=== PATIENT | male | born 1980 | race Caucasian/White ===

== ENCOUNTER 2017-04-22 17:50 | Emergency (ER) | payer BC ==
[~2017-04-22] VITALS: Ht 182.9 cm; Wt 92.6 kg
[~2017-04-22 17:50] MED LIST: ORPH100T PO; PRIL20TA2 PO; TRAM50TA PO
[2017-04-22 18:14] VITALS: BP 162/96; PULSE 71; RESP 16; TEMP 98.4; O2SAT 100
[2017-04-22] MEDS ORDERED: SODIUM CHLORIDE 0.9% FLUSH 10 ML FLUSH IV FLUSH PRN (18:30)
[2017-04-22] MEDS ORDERED: ONDANSETRON HCL 4 MG/2 ML VIAL IVP ONE (18:30)
[2017-04-22] MEDS ORDERED: SODIUM CHLOR 0.9% 1000 ML INJ 1,000 ML IV SCH (18:30)
[2017-04-22] MEDS ORDERED: MORPHINE SULFATE 4 MG/ML INJ IV PUSH ONE (18:30)
[2017-04-22] MEDS ORDERED: NEXI20CA PO (18:31)
--- NOTE | 2017-04-22 18:35 | PD ---
HPI Chief Complaint: Abdominal Pain Time Seen by Provider: 18:29 Travel History International Travel<30 days: No Contact w/Intl Traveler<30days: No Traveled to known affect area: No History of Present Illness HPI 37-year-old male patient with history of gastroparesis, presents to the ER today for several days history of nausea, increased fatigue, and started having right lower quadrant abdominal pains today, currently a 6 out of 10. He denies any diarrhea, fevers, or other symptoms. She states that there have been sick contacts at work. Modifying Factors: None Associated Signs & Symptoms: Nausea, right lower quadrant abdominal pain, not feeling well Risk Factors: Possible sick contacts PFSH Past Medical History Cancer: No Diabetes: No Diminished Hearing: No Gastrointestinal Disorders: Yes (GASTROPARESIS) GERD: Yes Hepatitis: No Hiatal Hernia: No Medical other: Yes (ACID REFLUX) Thyroid Disease: No Influenza Vaccination: No Past Surgical History Oral Surgery: Yes (HAND AND KNEE) Other Surgery: Yes Social History Alcohol Use: Yes (SOCIALLY ) Tobacco Use: No Substance Use: No Allergies-Medications (Allergen,Severity, Reaction): Coded Allergies: Pertussis Vaccines (Unverified Allergy, Severe, COMATOSE FOR 4 DAYS, 04/22) PT BECAME COMATOSE Reported Meds & Prescriptions Reported Meds & Active Scripts Active Reported Nexium (Esomeprazole DR) 20 Mg Capdr 20 Mg PO DAILY Review of Systems Except as stated in HPI: all other systems reviewed are Neg Physical Exam Narrative GENERAL: Well-developed young male patient currently in mild distress. Awake and oriented 3. SKIN: Focused skin assessment warm/dry. HEAD: Atraumatic. Normocephalic. EYES: Pupils equal and round. No scleral icterus. No injection or drainage. ENT: No nasal bleeding or discharge. Mucous membranes pink and moist. NECK: Trachea midline. No JVD. CARDIOVASCULAR: Regular rate and rhythm. No murmur appreciated. RESPIRATORY: No accessory muscle use. Clear to auscultation. Breath sounds equal bilaterally. GASTROINTESTINAL: Abdomen soft, mild right lower quadrant tenderness without guarding or rebound, nondistended. Hepatic and splenic margins not palpable. MUSCULOSKELETAL: No obvious deformities. No clubbing. No cyanosis. No edema. NEUROLOGICAL: Awake and alert. No obvious cranial nerve deficits. Motor grossly within normal limits. Normal speech. PSYCHIATRIC: Appropriate mood and affect; insight and judgment normal. Data Data Last Documented VS Vital Signs Date Time Temp Pulse Resp B/P (MAP) Pulse Ox O2 Delivery O2 Flow Rate FiO2 04/22/17 18:50 85 18 144/83 (103) 98 Room Air 04/22/17 18:14 98.4 Orders Orders Complete Blood Count With Diff (04/22/17 18:30) Comprehensive Metabolic Panel (04/22/17 18:30) Lipase (04/22/17 18:30) Urinalysis - C+S If Indicated (04/22/17 18:30) Ct Abd/Pel W Iv Contrast(Rout) (04/22/17 18:30) Iv Access Insert/Monitor (04/22/17 18:30) Ecg Monitoring (04/22/17 18:30) Oximetry (04/22/17 18:30) Morphine Inj (Morphine Inj) (04/22/17 18:30) Ondansetron Inj (Zofran Inj) (04/22/17 18:30) Sodium Chlor 0.9% 1000 Ml Inj (Ns 1000 M (04/22/17 18:30) Sodium Chloride 0.9% Flush (Ns Flush) (04/22/17 18:30) Influenzae A/B Antigen (04/22/17 18:30) Labs Laboratory Tests Test 04/22/17 18:35 White Blood Count 9.5 TH/MM3 Red Blood Count 5.20 MIL/MM3 Hemoglobin 14.4 GM/DL Hematocrit 44.1 % Mean Corpuscular Volume 84.9 FL Mean Corpuscular Hemoglobin 27.7 PG Mean Corpuscular Hemoglobin Concent 32.7 % Red Cell Distribution Width 14.1 % Platelet Count 261 TH/MM3 Mean Platelet Volume 8.2 FL Neutrophils (%) (Auto) 78.1 % Lymphocytes (%) (Auto) 14.9 % Monocytes (%) (Auto) 5.2 % Eosinophils (%) (Auto) 1.0 % Basophils (%) (Auto) 0.8 % Neutrophils # (Auto) 7.4 TH/MM3 Lymphocytes # (Auto) 1.4 TH/MM3 Monocytes # (Auto) 0.5 TH/MM3 Eosinophils # (Auto) 0.1 TH/MM3 Basophils # (Auto) 0.1 TH/MM3 CBC Comment DIFF FINAL Differential Comment Blood Urea Nitrogen 18 MG/DL Creatinine 1.10 MG/DL Random Glucose 88 MG/DL Total Protein 8.1 GM/DL Albumin 4.2 GM/DL Calcium Level 9.2 MG/DL Alkaline Phosphatase 65 U/L Aspartate Amino Transf (AST/SGOT) 17 U/L Alanine Aminotransferase (ALT/SGPT) 25 U/L Total Bilirubin 0.5 MG/DL Sodium Level 138 MEQ/L Potassium Level 3.9 MEQ/L Chloride Level 104 MEQ/L Carbon Dioxide Level 25.1 MEQ/L Anion Gap 9 MEQ/L Estimat Glomerular Filtration Rate 75 ML/MIN Lipase 83 U/L [facility] Medical Decision Making Medical Screen Exam Complete: Yes Emergency Medical Condition: Yes Medical Record Reviewed: Yes Interpretation(s) Laboratory Tests Test 04/22/17 18:35 Neutrophils (%) (Auto) 78.1 % (16.0-70.0) Estimat Glomerular Filtration Rate 75 ML/MIN (>89) Differential Diagnosis Right lower quadrant abdominal pain with nausea: Gastroparesis versus gastroenteritis versus appendicitis versus renal colic versus UTI Narrative Course Patient was given pain medications, IV fluids, nausea medications in the ER. Initial lab work is fairly unremarkable. CAT scan has been ordered for the patient for further evaluation especially with the right lower quadrant abdominal pain. Physician Communication Physician Communication Case is signed out to Dr. James at 7 PM pending CAT scan evaluation. Disposition based CAT scan. Diagnosis Primary Impression: Abdominal pain Condition: Stable Khurram Roach MD Apr 22, 2017 18:35
[2017-04-22 18:46] LABS: AUTOMATED NEUTROPHIL # 7.4 TH/MM3 (1.8-7.7); BASOPHIL # 0.1 TH/MM3 (0-0.2); BASOPHIL % 0.8 % (0.0-2.0); EOSINOPHIL # 0.1 TH/MM3 (0-0.4); HEMATOCRIT 44.1 % (39.0-51.0); HEMOGLOBIN 14.4 GM/DL (13.0-17.0); LYMPH % 14.9 % (9.0-44.0); LYMPHOCYTE # 1.4 TH/MM3 (1.0-4.8); MEAN CELL VOLUME 84.9 FL (80.0-100.0); MEAN CORPUSCULAR HEMOGLOBIN 27.7 PG (27.0-34.0); MEAN CORPUSCULAR HGB CONC 32.7 % (32.0-36.0); MEAN PLATELET VOLUME 8.2 FL (7.0-11.0); MONO % 5.2 % (0.0-8.0); MONOCYTE # 0.5 TH/MM3 (0-0.9); NEUT % 78.1 % (16.0-70.0); PLATELET COUNT 261 TH/MM3 (150-450); RED CELL DISTRIBUTION WIDTH 14.1 % (11.6-17.2); WHITE BLOOD COUNT 9.5 TH/MM3 (4.0-11.0)
[2017-04-22 18:50] VITALS: BP 144/83; PULSE 85; RESP 18; O2SAT 98
[2017-04-22 18:53] LABS: CHLORIDE 104 MEQ/L (98-107); SODIUM (NA) 138 MEQ/L (136-145)
[2017-04-22 18:57] LABS: ALBUMIN 4.2 GM/DL (3.4-5.0); BICARBONATE 25.1 MEQ/L (21.0-32.0); BLOOD UREA NITROGEN 18 MG/DL (7-18); CALCIUM 9.2 MG/DL (8.5-10.1); GLUCOSE,RANDOM 88 MG/DL (74-106)
[2017-04-22 18:58] LABS: LIPASE 83 U/L (73-393)
[2017-04-22 19:00] LABS: ALT (GPT) 25 U/L (12-78); AST (GOT) 17 U/L (15-37); GLOMERULAR FILTRATION RATE 75 ML/MIN (>89)
[2017-04-22 19:02] LABS: TOTAL BILIRUBIN ADULT 0.5 MG/DL (0.2-1.0); TOTAL PROTEIN 8.1 GM/DL (6.4-8.2)
[2017-04-22 19:03] LABS: ALKALINE PHOSPHATASE 65 U/L (45-117)
[2017-04-22] MEDS ORDERED: IOHEXOL 350 MG/ML 10 ML VIAL (for RAD DIAG) IVCONTRAST ONE (19:34)
[2017-04-22 19:50] VITALS: BP 144/75; PULSE 85; RESP 16; O2SAT 98
--- NOTE | 2017-04-22 20:10 | RADRPT ---
EXAM DATE/TIME: 04/22/2017 19:29 [facility] COMPARISON: CT ABDOMEN & PELVIS W CONTRAST, April 06, 2015, 21:44. INDICATIONS : Right lower quadrant pain. IV CONTRAST: 100 cc Omnipaque 350 (iohexol) IV ORAL CONTRAST: No oral contrast ingested. RADIATION DOSE: 11.78 CTDIvol (mGy) MEDICAL HISTORY : Gastroparesis. Gastroesophageal reflux disease. SURGICAL HISTORY : None. ENCOUNTER: Initial ACUITY: 1 day PAIN SCALE: 6/10 LOCATION: Right lower quadrant TECHNIQUE: Volumetric scanning of the abdomen and pelvis was performed. Using automated exposure control and ad justment of the mA and/or kV according to patient size, radiation dose was kept as low as reasonably achievable to obtain optimal diagnostic quality images. DICOM format image data is available electro nically for review and comparison. FINDINGS: LOWER LUNGS: The visualized lower lungs are clear. LIVER: Homogeneous density without lesion. There is no dilation of the biliary tree. No calcified gallston es. SPLEEN: Calcified granulomas are seen. PANCREAS: Within normal limits. KIDNEYS: Normal in size and shape. There is no mass, stone or hydronephrosis. ADRENAL GLANDS: Within normal limits. VASCULAR: There is no aortic aneurysm. BOWEL/MESENTERY: There is fluid seen throughout the ascending colon. The terminal ileum appears normal. What appears t o be the appendix appears normal. There is minimal free fluid in the pelvis. ABDOMINAL WALL: Within normal limits. RETROPERITONEUM: There is no lymphadenopathy. BLADDER: No wall thickening or mass. REPRODUCTIVE: Within normal limits. INGUINAL: There is no lymphadenopathy or hernia. MUSCULOSKELETAL: Within normal limits for patient age. CONCLUSION: Fluid in the ascending colon. There is no sign of obstruction or significant inflammatory change. The re is minimal free fluid in the peritoneal cavity in the pelvis. Rich Mcmanus MD on April 22, 2017 at 20:04 Board Certified Radiologist. This report was verified electronically.
[2017-04-22 20:14] LABS: BILIRUBIN, URINE NEG (NEG); BLOOD, URINE NEG (NEG); GLUCOSE,URINE NEG (NEG); KETONE, URINE 15 mg/dL (NEG); NITRITE,URINE NEG (NEG); URINE LEUKOCYTE ESTERASE NEG (NEG)
--- NOTE | 2017-04-22 20:30 | PD ---
Physical Exam Narrative GENERAL: SKIN: Warm and dry. HEAD: Atraumatic. Normocephalic. EYES: Pupils equal and round. No scleral icterus. No injection or drainage. ENT: No nasal bleeding or discharge. Mucous membranes pink and moist. NECK: Trachea midline. No JVD. CARDIOVASCULAR: Regular rate and rhythm. RESPIRATORY: No accessory muscle use. Clear to auscultation. Breath sounds equal bilaterally. GASTROINTESTINAL: Abdomen soft, mild right quadrant ttpercussion, without distention/guarding/rigidity/rebound MUSCULOSKELETAL: Extremities without clubbing, cyanosis, or edema. No obvious deformities. NEUROLOGICAL: Awake and alert. No obvious cranial nerve deficits. Motor grossly within normal limits. Five out of 5 muscle strength in the arms and legs. Normal speech. PSYCHIATRIC: Appropriate mood and affect; insight and judgment normal. Data Data Last Documented VS Vital Signs Date Time Temp Pulse Resp B/P (MAP) Pulse Ox O2 Delivery O2 Flow Rate FiO2 04/22/17 19:50 85 16 144/75 (98) 98 Room Air 04/22/17 18:14 98.4 Orders Orders Complete Blood Count With Diff (04/22/17 18:30) Comprehensive Metabolic Panel (04/22/17 18:30) Lipase (04/22/17 18:30) Urinalysis - C+S If Indicated (04/22/17 18:30) Ct Abd/Pel W Iv Contrast(Rout) (04/22/17 18:30) Iv Access Insert/Monitor (04/22/17 18:30) Ecg Monitoring (04/22/17 18:30) Oximetry (04/22/17 18:30) Morphine Inj (Morphine Inj) (04/22/17 18:30) Ondansetron Inj (Zofran Inj) (04/22/17 18:30) Sodium Chlor 0.9% 1000 Ml Inj (Ns 1000 M (04/22/17 18:30) Sodium Chloride 0.9% Flush (Ns Flush) (04/22/17 18:30) Influenzae A/B Antigen (04/22/17 18:30) Iohexol 350 Inj (Omnipaque 350 Inj) (04/22/17 19:34) Labs Laboratory Tests Test 04/22/17 18:35 04/22/17 20:10 White Blood Count 9.5 TH/MM3 Red Blood Count 5.20 MIL/MM3 Hemoglobin 14.4 GM/DL Hematocrit 44.1 % Mean Corpuscular Volume 84.9 FL Mean Corpuscular Hemoglobin 27.7 PG Mean Corpuscular Hemoglobin Concent 32.7 % Red Cell Distribution Width 14.1 % Platelet Count 261 TH/MM3 Mean Platelet Volume 8.2 FL Neutrophils (%) (Auto) 78.1 % Lymphocytes (%) (Auto) 14.9 % Monocytes (%) (Auto) 5.2 % Eosinophils (%) (Auto) 1.0 % Basophils (%) (Auto) 0.8 % Neutrophils # (Auto) 7.4 TH/MM3 Lymphocytes # (Auto) 1.4 TH/MM3 Monocytes # (Auto) 0.5 TH/MM3 Eosinophils # (Auto) 0.1 TH/MM3 Basophils # (Auto) 0.1 TH/MM3 CBC Comment DIFF FINAL Differential Comment Blood Urea Nitrogen 18 MG/DL Creatinine 1.10 MG/DL Random Glucose 88 MG/DL Total Protein 8.1 GM/DL Albumin 4.2 GM/DL Calcium Level 9.2 MG/DL Alkaline Phosphatase 65 U/L Aspartate Amino Transf (AST/SGOT) 17 U/L Alanine Aminotransferase (ALT/SGPT) 25 U/L Total Bilirubin 0.5 MG/DL Sodium Level 138 MEQ/L Potassium Level 3.9 MEQ/L Chloride Level 104 MEQ/L Carbon Dioxide Level 25.1 MEQ/L Anion Gap 9 MEQ/L Estimat Glomerular Filtration Rate 75 ML/MIN Lipase 83 U/L Urine Color YELLOW Urine Turbidity CLEAR Urine pH 6.0 Urine Specific [place] 1.033 Urine Protein NEG mg/dL Urine Glucose (UA) NEG mg/dL Urine Ketones 15 mg/dL Urine Occult Blood NEG Urine Nitrite NEG Urine Bilirubin NEG Urine Leukocyte Esterase NEG Urine RBC 0-3 /hpf Urine Squamous Epithelial Cells 0-5 /hpf Urine Mucus OCC /lpf Microscopic Urinalysis Comment CULT NOT INDICATED MDM Medical Record Reviewed: Yes Supervised Visit with OLGA: No Narrative Course patient pain and nausea controlled and able to tolerate po well. will d/c home for outpatient therapy Diagnosis Primary Impression: Abdominal pain Qualified Codes: R10.9 - Unspecified abdominal pain Patient Instructions: Colitis (ED), Full Liquid Diet (GEN), General Instructions Scripts Metronidazole (Flagyl) 500 Mg Tab 500 MG PO TID for Infection, #15 TAB 0 Refills Prov: Raj James MD 04/22/17 Ciprofloxacin (Cipro) 500 Mg Tab 500 MG PO BID for Infection, #10 TAB 0 Refills Prov: Raj James MD 04/22/17 Tramadol (Ultram) 50 Mg Tab 50 MG PO Q4H Y for PAIN, #15 TAB 0 Refills Prov: Raj James MD 04/22/17 Metoclopramide (Reglan) 10 Mg Tab 10 MG PO QID, #20 TAB 0 Refills Prov: Raj James MD 04/22/17 Disposition: 01 DISCHARGE HOME Condition: Stable Raj James MD Apr 22, 2017 20:30
[2017-04-22 20:37] LABS: URINE COLOR YELLOW (YELLW/STRAW)
[2017-04-22 20:38] LABS: MUCUS URINE OCC /lpf (OCC); SQUAMOUS EPITHELIAL CELL URINE 0-5 /hpf (0-5)
[2017-04-22 20:39] LABS: RBC, URINE 0-3 /hpf (0-3)
[2017-04-22] MEDS ORDERED: CIPR-9 PO (20:44)
[2017-04-22] MEDS ORDERED: TRAM50 PO (20:44)
[2017-04-22] MEDS ORDERED: REGL10TA5 PO (20:44)
[2017-04-22] MEDS ORDERED: METR-1 PO (20:44)
[2017-04-22 21:39] VITALS: BP 147/68; PULSE 84; RESP 18; TEMP 98.3; O2SAT 98
== END 2017-04-22 21:42 | disposition home or self-care (01) ==
LOC: PHED 17:50
DX: R10.31 Right lower quadrant pain (principal); K31.84 Gastroparesis; K21.9 Gastro-esophageal reflux disease without esophagitis
CPT/HCPCS: 74177; 80053; 81001; 83690; 85025; 87804; 96361; 96374; 96375; 99285; J2270; J2405; J7030; Q9967